=== PATIENT | male | born 1985 | race Caucasian/White ===

== ENCOUNTER 2016-12-12 04:04 | Emergency (ER) | payer OTHER ==
[~2016-12-12] VITALS: Ht 177.8 cm; Wt 104.3 kg
[~2016-12-12 04:04] MED LIST: LOMOTIL TABLET1 EAC1 PO; ZOFRAN 4 MG4 MG/2 ML IV
[2016-12-12] MEDS ORDERED: NKM (04:18)
[2016-12-12 04:20] VITALS: BP 118/79
[2016-12-12] MEDS ORDERED: ROBAXIN-750750 MG PO (04:26)
[2016-12-12] MEDS ORDERED: IBUPROFEN600 MG ORAL (04:26)
[2016-12-12] MEDS ORDERED: Ketorolac 60mg Inj IM ONE (04:30)
[2016-12-12 04:35] VITALS: BP 118/79
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
== END 2016-12-12 04:35 | disposition home or self-care (01) ==
LOC: EMR 04:24
DX: M54.5 Low back pain (principal); Z88.1 Allergy status to other antibiotic agents
CPT/HCPCS: 96372; 99284

== ENCOUNTER 2019-11-23 07:04 | Emergency (ER) | payer OTHER ==
[~2019-11-23] VITALS: Ht 175.3 cm; Wt 122.9 kg
[~2019-11-23 07:04] MED LIST changes: +IBUPROFEN600 MG ORAL; +NKM; +ROBAXIN-750750 MG PO
--- NOTE | 2019-11-23 07:20 | NUR ---
ED Nurse Note: Patient presents to ED due to flu-like symptoms since last night. Reports no travel hx or close contact with anyone who is ill. Patient c/o runny nose, bodyache, fever and chills and dry cough. Regular, unlabored breathing noted. Patient ambulating with steady gait to the room. Mask provided.
[2019-11-23 07:40] VITALS: BP 120/66
[2019-11-23] MEDS ORDERED: Ketorolac 60mg Inj IM ONE (07:45)
--- NOTE | 2019-11-23 07:48 | Emergency Room Report ---
History of Present Illness General Chief Complaint: Flu Like Symptoms Source: Patient Present Illness HPI Patient presents with complaints of cough congestion body ache Symptoms started this morning patient had woke up to go to the gym as he does usually Noticed he had a cough Headache And also had some epigastric upset stomach Subjective low-grade fever also noted Denies any neck pain or photophobia denies any recent travel denies any chest pain or shortness of breath Patient reports that his kids were recently sick with a cold as well Allergies: Coded Allergies: VANCOMYCIN (Verified Allergy, Unknown, 04/26/16) Patient History Past Medical History: see triage record Reviewed Nursing Documentation: PMH: Agreed; PSxH: Agreed Nursing Documentation-PMH Past Medical History: No Stated History Review of Systems All Other Systems: negative except mentioned in HPI Physical Exam Vital Signs Date Time Temp Pulse Resp B/P (MAP) Pulse Ox O2 Delivery O2 Flow Rate FiO2 11/23/19 07:16 99.7 102 18 116/62 (80) 94 Room Air Sp02 EP Interpretation: reviewed, normal General Appearance: well appearing, no apparent distress Head: normocephalic, atraumatic Eyes: bilateral eye PERRL, bilateral eye EOMI, bilateral eye other - Mild bilateral conjunctival irritation ENT: hearing grossly normal, normal pharynx, TMs + canals normal, uvula midline Neck: full range of motion, supple, no meningismus, no bony tend Respiratory: lungs clear, normal breath sounds, no rhonchi, no respiratory distress, no retraction, no accessory muscle use Cardiovascular #1: normal peripheral pulses, regular rate, rhythm, no edema, no gallop, no JVD, no murmur Gastrointestinal: normal bowel sounds, non tender, soft, no mass, no organomegaly, non-distended, no guarding, no hernia, no pulsatile mass, no rebound Musculoskeletal: normal inspection Neurologic: motor strength/tone normal, parachute inspector III-XII nml as tested, oriented x3 , sensory intact, responsive Psychiatric: mood/affect normal Skin: no rash Lymphatic: normal inspection, no adenopathy Medical Decision Making Diagnostic Impression: Primary Impression: Influenza-like symptoms ER Course Given the history exam and presentation multiple differentials and consideration including but not limited to pneumonia, URI, influenza Given the exam and the history there appears to be more consistent findings with the flu patient treated the emergency room symptomatically and will have close outpatient follow-up Last Vital Signs Date Time Temp Pulse Resp B/P (MAP) Pulse Ox O2 Delivery O2 Flow Rate FiO2 11/23/19 07:16 99.7 102 18 116/62 (80) 94 Room Air Status: improved Disposition: HOME, SELF-CARE Condition: Improved Scripts Ibuprofen* (MOTRIN*) 600 Mg Tablet 600 MG ORAL Q8H PRN for For Pain, #20 TAB 0 Refills Prov: Yoli Pederson DO 11/23/19 Oseltamivir Phosphate (Tamiflu) 75 Mg Capsule 75 MG ORAL TWICE A DAY for 5 Days, CAP Prov: Yoli Pederson DO 11/23/19 Referrals: NON PHYSICIAN (PCP) Additional Instructions: Patient is provided with the discharge instructions notified to follow up with primary doctor in the next 2-3 days otherwise return to the er with any worsening symptoms. Please note that this report is being documented using [employer] technology. This can lead to erroneous entry secondary to incorrect interpretation by the dictating instrument. Yoli Pederson DO Nov 23, 2019 07:48
[2019-11-23] MEDS ORDERED: TAMIFLU75 MG ORAL (08:24)
[2019-11-23] MEDS ORDERED: IBUPROFEN600 MG ORAL (08:24)
[2019-11-23 08:27] VITALS: BP 118/70
--- NOTE | 2019-11-23 08:27 | NUR ---
ER DISCHARGE NOTE: Patient is cleared to be discharged per ERMD, pt is aox4, on room air, with stable vital signs. pt was given dc and prescription instructions, pt was able to verbalize understanding, pt id band removed without complications. pt is able to ambulate with steady gait. pt took all belongings.
== END 2019-11-23 08:27 | disposition home or self-care (01) ==
LOC: EMR 07:39
DX: R05 Cough (principal); R51 Headache; R10.13 Epigastric pain; R50.9 Fever, unspecified; Z88.8 Allergy status to other drugs, medicaments and biological substances
CPT/HCPCS: 96372; 99283